=== PATIENT | female | born 1975 | race Caucasian/White ===

== ENCOUNTER 2024-06-24 12:11 | Observation (INO) | payer SELFPAY ==
[~2024-06-24] VITALS: Ht 170.2 cm; Wt 107.0 kg
[2024-06-24] MEDS ORDERED: Pantoprazole Sodium 40 MG VIAL (Protonix) IV ONE (12:55)
[2024-06-24] MEDS ORDERED: ONDANSETRON HCl 4 MG/2 ML SDV IV ONE (12:55)
[2024-06-24 13:07] LABS: BASO% 0.9 % (0-3); HEMATOCRIT 33.4 % (37.0-47.0); IMMATURE GRANULOCYTES 0.3 % (0.0-5.0); LYMPH% 19.6 % (15-41); MEAN CELL VOLUME 88.4 fL CALC (80.0-100.0); MEAN CORPUSCULAR HGB 29.1 pG CALC (26.0-32.0); MEAN CORPUSCULAR HGB CONC 32.9 g/dL CAL (32.0-36.0); MONO% 6.1 % (2-13); NEUT# 3.92 thou/uL (2.00-7.15); NEUT% 68.1 % (42-76); RED BLOOD COUNT 3.78 mill/uL (4.20-5.60); RED CELL DISTRI WIDTH 12.1 % (11.5-15.5)
[2024-06-24 13:16] LABS: ALBUMIN 4.1 g/dL (3.2-5.0); ALKALINE PHOSPHATASE 90 u/l (38-126); ANION GAP 12 (6-22 (CALC)); BILIRUBIN, TOTAL 0.4 mg/dL (0.02-1.3); BUN 11 mg/dL (7-17); BUN/CREATININE RATIO 16 (12-20 (CALC)); CARBON DIOXIDE 28 mmol/l (22-30); CHLORIDE 104 mmol/l (95-108); CREATININE 0.7 mg/dL (0.5-1.0); ESTIMATED GFR 105 ML/MIN (>=90 (CALC)); LIPASE 113 u/l (23-300); POTASSIUM 4.4 mmol/l (3.5-5.1); SGOT/AST 46 u/l (14-36); SODIUM 139 mmol/l (137-146); TOTAL PROTEIN 7.3 g/dL (6.3-8.2)
[2024-06-24 13:30] LABS: PROTHROMBIN TIME 10.4 SECONDS (9.0-12.5)
[2024-06-24] MEDS ORDERED: MORPHINE SULFATE 4 MG/ML VIAL IV ONE (14:20)
[2024-06-24] MEDS ORDERED: Pantoprazole Sodium 40 MG VIAL (Protonix) IV SCH (15:15)
[2024-06-24] MEDS ORDERED: SODIUM CHLORIDE 0.9% 1,000 ML IV PRN (15:15)
[2024-06-24] MEDS ORDERED: HYDROmorphone HCL 2 MG/AMP IV PRN ×2 (15:15→22:40)
[2024-06-24] MEDS ORDERED: ONDANSETRON HCl 4 MG/2 ML SDV IV PRN (15:15)
[2024-06-24] MEDS ORDERED: OXYCODONE5 M1 PO (15:21)
[2024-06-24] MEDS ORDERED: PROMETHAZINE HY25 M1 PO (15:22)
[2024-06-24] MEDS ORDERED: [UNRECOGNIZED DRUG - OTHER] PO (15:23)
[2024-06-24] MEDS ORDERED: TYLENOL SINUS PO (15:23)
[2024-06-24 16:31] VITALS: BP 128/75
[2024-06-24 16:58] VITALS: BP 139/51
[2024-06-24 19:15] VITALS: BP 121/62
[2024-06-24] MEDS ORDERED: PROMETHAZINE HCL 25 MG/ML AMP IV PRN (22:40)
[2024-06-25 00:08] VITALS: BP 119/67
[2024-06-25 04:18] VITALS: BP 125/55
[2024-06-25 05:55] LABS: BASO% 0.6 % (0-3); EOS% 4.5 % (0-8); HEMATOCRIT 31.5 % (37.0-47.0); HEMOGLOBIN 10.1 g/dl (12.0-16.0); IMMATURE GRANULOCYTES 0.2 % (0.0-5.0); LYMPH% 20.7 % (15-41); MEAN CELL VOLUME 93.2 fL CALC (80.0-100.0); MEAN CORPUSCULAR HGB 29.9 pG CALC (26.0-32.0); MEAN CORPUSCULAR HGB CONC 32.1 g/dL CAL (32.0-36.0); MONO% 8.1 % (2-13); NEUT# 4.08 thou/uL (2.00-7.15); NEUT% 65.9 % (42-76); RED BLOOD COUNT 3.38 mill/uL (4.20-5.60); RED CELL DISTRI WIDTH 12.2 % (11.5-15.5)
[2024-06-25 06:07] LABS: ALBUMIN 3.7 g/dL (3.2-5.0); BILIRUBIN, TOTAL 0.4 mg/dL (0.02-1.3); CREATININE 0.7 mg/dL (0.5-1.0); POTASSIUM 4.4 mmol/l (3.5-5.1); TOTAL PROTEIN 6.5 g/dL (6.3-8.2)
[2024-06-25 07:32] VITALS: BP 114/49
[2024-06-25 11:29] LABS: HEMATOCRIT 31.1 % (37.0-47.0); HEMOGLOBIN 10.1 g/dl (12.0-16.0)
[2024-06-25] MEDS ORDERED: Peg 3350-POTASSIUM CHLORIDE-So 4,000 ML BTL PO SCH (11:30)
[2024-06-25] MEDS ORDERED: PROMETHAZINE HCL 25 MG/ML AMP IV PRN (14:00)
[2024-06-25 15:37] VITALS: BP 108/58
[2024-06-25] MEDS ORDERED: HYDROmorphone HCL 2 MG/AMP IV PRN (15:50)
[2024-06-25 17:43] LABS: HEMATOCRIT 29.7 % (37.0-47.0); HEMOGLOBIN 9.8 g/dl (12.0-16.0)
[2024-06-25 18:35] VITALS: BP 102/48
[2024-06-25 18:45] VITALS: BP 102/48
[2024-06-26] VITALS (12 sets, daily range): BP systolic 91–149; BP diastolic 47–73
[2024-06-26 08:28] LABS: BASO% 0.5 % (0-3); HEMOGLOBIN 9.1 g/dl (12.0-16.0); IMMATURE GRANULOCYTES 0.5 % (0.0-5.0); LYMPH% 25.4 % (15-41); MEAN CELL VOLUME 90.3 fL CALC (80.0-100.0); MEAN CORPUSCULAR HGB 29.4 pG CALC (26.0-32.0); MEAN CORPUSCULAR HGB CONC 32.5 g/dL CAL (32.0-36.0); MONO% 7.5 % (2-13); NEUT# 3.89 thou/uL (2.00-7.15); NEUT% 62.1 % (42-76); RED BLOOD COUNT 3.1 mill/uL (4.20-5.60); RED CELL DISTRI WIDTH 12.4 % (11.5-15.5)
[2024-06-26 08:40] LABS: ALBUMIN 3.4 g/dL (3.2-5.0); BILIRUBIN, TOTAL 0.4 mg/dL (0.02-1.3); CREATININE 0.7 mg/dL (0.5-1.0); MAGNESIUM 2.2 mg/dL (1.6-2.3); POTASSIUM 4.2 mmol/l (3.5-5.1); TOTAL PROTEIN 6.1 g/dL (6.3-8.2)
[2024-06-26] MEDS ORDERED: REMIMAZOLAM BESYLATE 20 MG/VIAL INJ IV ONE (10:45)
[2024-06-26] MEDS ORDERED: KETAMINE HCL 50 MG/ML 10 ML VIAL IV ONE (10:45)
[2024-06-26] MEDS ORDERED: LIDOCAINE HCL 2% 2ML SDV IV ONE (10:45)
[2024-06-26] MEDS ORDERED: GLYCOPYRROLATE 0.2 MG/ML IV ONE (10:45)
[2024-06-26] MEDS ORDERED: SODIUM CHLORIDE 0.9% 1,000 ML IV ONE (11:32)
[2024-06-26] MEDS ORDERED: PROMETHAZINE HCL 25 MG/ML AMP ONE (12:55)
[2024-06-26] MEDS ORDERED: BUPRENORPHINE H1 SU3 PO (15:41)
[2024-06-26] MEDS ORDERED: PATIENT' OWN MED 1 EA DOSE PO SCH (18:00)
[2024-06-26 18:25] LABS: HEMATOCRIT 29.3 % (37.0-47.0); HEMOGLOBIN 9.7 g/dl (12.0-16.0)
[2024-06-27 00:03] VITALS: BP 117/56
[2024-06-27 00:54] VITALS: BP 106/58
[2024-06-27 03:50] VITALS: BP 112/35
[2024-06-27 06:49] VITALS: BP 110/50
[2024-06-27 07:56] LABS: BASO% 0.8 % (0-3); EOS% 5.7 % (0-8); HEMOGLOBIN 9.5 g/dl (12.0-16.0); IMMATURE GRANULOCYTES 0.2 % (0.0-5.0); MEAN CELL VOLUME 90.1 fL CALC (80.0-100.0); MEAN CORPUSCULAR HGB 29.5 pG CALC (26.0-32.0); MEAN CORPUSCULAR HGB CONC 32.8 g/dL CAL (32.0-36.0); MONO% 6.7 % (2-13); NEUT# 3.35 thou/uL (2.00-7.15); NEUT% 65.6 % (42-76); RED BLOOD COUNT 3.22 mill/uL (4.20-5.60); RED CELL DISTRI WIDTH 12.2 % (11.5-15.5)
[2024-06-27 08:11] LABS: ALBUMIN 3.6 g/dL (3.2-5.0); BILIRUBIN, TOTAL 0.4 mg/dL (0.02-1.3); CREATININE 0.6 mg/dL (0.5-1.0); POTASSIUM 4.4 mmol/l (3.5-5.1); TOTAL PROTEIN 6.4 g/dL (6.3-8.2)
[2024-06-27] MEDS ORDERED: PROTONIX40 M2 PO (09:25)
[2024-06-27 10:30] VITALS: BP 117/67
== END 2024-06-27 12:55 | disposition home or self-care (01) | DRG 378 ==
LOC: ED 12:11 → ED-I 15:00 → ED 15:14 → MS2 15:15
PROVIDERS: Family Medicine; Nurse Practitioner Family; ADMIT Internal Medicine; ATTEND Internal Medicine
PROC: 0DJD8ZZ Inspection of Lower Intestinal Tract, Via Natural or Artificial Opening Endoscopic (ICD-10-PCS; principal; 2024-06-26)
PROC: 0DB68ZX Excision of Stomach, Via Natural or Artificial Opening Endoscopic, Diagnostic (ICD-10-PCS; 2024-06-26)
DX: K25.4 Chronic or unspecified gastric ulcer with hemorrhage (principal); D62 Acute posthemorrhagic anemia; K31.89 Other diseases of stomach and duodenum; K64.4 Residual hemorrhoidal skin tags; K64.8 Other hemorrhoids; G89.4 Chronic pain syndrome; E89.2 Postprocedural hypoparathyroidism; E66.01 Morbid (severe) obesity due to excess calories; Z87.19 Personal history of other diseases of the digestive system; Z79.891 Long term (current) use of opiate analgesic; Z87.11 Personal history of peptic ulcer disease; Z98.890 Other specified postprocedural states
CPT/HCPCS: G0378; J1171; J1596; J2249; J2405; J2470; J2550; Q9967